=== PATIENT | male | born 1950 ===

== ENCOUNTER 2019-02-25 18:15 | Inpatient (IN) | payer OTHER, MEDICARE ==
[~2019-02-25] VITALS: Ht 175.3 cm; Wt 74.8 kg
[2019-02-25] MEDS ORDERED: DIPHTH/TETANUS/ACEL. PERTUSSIS IM ONLY ONE (18:20)
[2019-02-25] MEDS ORDERED: EMS NS 0.9%(*) 1000 ML BAG 1,000 ML IV ONE (18:20)
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
[2019-02-25 18:40] LABS: PLATELET COUNT, AUTOMATED 128 K/uL (150-450)
[2019-02-25] MEDS ORDERED: NITR0.4T3 SL (18:48)
[2019-02-25] MEDS ORDERED: LISI-374 PO (18:48)
[2019-02-25] MEDS ORDERED: SIMV-54 PO (18:48)
[2019-02-25] MEDS ORDERED: GLIM4TAB50 PO (18:48)
[2019-02-25] MEDS ORDERED: CLOP75TA PO (18:48)
[2019-02-25] MEDS ORDERED: ASPI-1471 PO (18:48)
[2019-02-25] MEDS ORDERED: METO50TA19 PO (18:48)
[2019-02-25 18:52] LABS: INR 1.13
[2019-02-25] MEDS ORDERED: ACETAMINOPHEN 500 MG TAB PO ONE (19:25)
[2019-02-25] MEDS ORDERED: NS(*) 0.9% 1000 ML BAG 1,000 ML IV ONE (19:25)
[2019-02-25] MEDS ORDERED: VANCOMYCIN(*) 1 GM VIAL 1.75 GM in NS(*) 0.9% 250 ML BAG 250 ML IVPB ONE (19:40)
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
[2019-02-25] MEDS ORDERED: NICOTINE 21 MG/24 HR PATCH TD ONE (20:20)
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
[2019-02-25 21:21] VITALS: BP 123/58
[2019-02-25] MEDS ORDERED: NITROGLYCERIN 0.4 MG SUBL SL SCH (21:35)
[2019-02-25] MEDS ORDERED: FLUSH 10 ML SYR IVP PRN (21:35)
[2019-02-25] MEDS ORDERED: INSULIN HUM LISPRO 100 UN/ML 3 ML VIAL SUBQ PRN (21:35)
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
[2019-02-25] MEDS: NS(*) 0.9% 1000 ML BAG 1,000 ML IV PRN (22:13)
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
[2019-02-26] MEDS: PIPERACILLIN/TAZO*3.375GM VIAL 3.375 GM in NS(*) 0.9% 100 ML MINI-BAG 100 ML IVPB SCH ×4 (00:12→17:18)
[2019-02-26 00:18] VITALS: BP 143/91
[2019-02-26 05:53] LABS: PLATELET COUNT, AUTOMATED 107 K/uL (150-450)
[2019-02-26 07:25] VITALS: BP 127/52
[2019-02-26] MEDS: VANCOMYCIN(*) 1 GM VIAL 1 GM, VANCOMYCIN (*) 0.5 GM VIAL 0.25 GM in NS(*) 0.9% 250 ML B... IVPB SCH ×2 (09:32→21:16)
[2019-02-26] MEDS: METOPROLOL SUCC XL 50 MG TABCR 50 MG TAB.ER.24H PO SCH (09:33)
[2019-02-26] MEDS: ASPIRIN 81 MG ENTERIC COATED PO SCH (09:33)
[2019-02-26] MEDS: CLOPIDOGREL BISULFATE 75MG TAB PO SCH (09:33)
[2019-02-26] MEDS: ENOXAPARIN 40 MG/0.4ML SYR SC SCH (09:35)
[2019-02-26] MEDS ORDERED: DOXYCYCLINE HYCL 100 MG VIAL 100 MG in NS(*) 0.9% 250 ML BAG 250 ML IV SCH (11:30)
[2019-02-26 11:53] VITALS: BP 146/73
[2019-02-26] MEDS: ACETAMINOPHEN 325 MG TAB PO PRN ×2 (12:30→13:43)
--- NOTE | 2019-02-26 13:32 | Medical Nutrition Therapy ---
Nutrition Anthropometrics Height (Inches): 69.00 Height (Calculated Centimeters: 175.024080 Weight (Pounds): 165 Weight (Calculated Kilograms): 74.843 BMI: 24.4 Glenn Nutrition Score: Adequate Glenn Nutrition Risk Score: 16 Dietary Referral Nutrition Risk Factors: Nutrition Risk Comment: Physical Findings Physical Appearance: WNR Skin Appearance Skin Appearance: Edema Edema Location Modifier: Right Edema Location: Leg Type of Edema: Degree of Edema: 1+ Gastrointestinal Symptoms GI Symtoms: Tube Present: Bowel Sounds: Recent Bowel Pattern: Stool Characteristics: Nutritional Diagnosis Nutritional Risk Acuity 2: Sepsis Past Medical History: CAD,HTN Nutritional Acuity: 2-Moderate Nutrition Diagnosis: Increased Nutrient Needs Nutrition Etiology: Physiological Causes Nutrition Problem/Etiology/Sym: Cellulitis, Sepsis Energy Requirement: 2409 Protein Requirement: 90 (1.2g/kg (sepsis)) Fluid Requirement: 2409 (1mL/kcal) Nutrition Intervention: Encourage intake, Between meal supplement Nutrition Monitoring & Eval RD Patient Assessment Time: [address] Assessment Type: RD Assessment Patient Nutrition Acuity: 2-Moderate Follow Up Date: Feb 27, 2019 Nutritional Comment: 02/26/19-Reviewed PMH. Significant for CAD, DM, HTN. Found to be septic possibly from cellulitis per H&P. Pertinent rx include simvastatin, lisinopril, lantus, and humalog. BG WNR. Neutrophils elevated. Recommend additional protein related to sepsis. Once pt is awake will offer beneprotein and will provide diabetic diet education. Will continue to monitor.FANTASMA FINCH Feb 26, 2019 13:32
[2019-02-26] MEDS: DOXYCYCLINE HYCL 100 MG VIAL 100 MG in NS(*) 0.9% 250 ML BAG 250 ML IV SCH (13:37)
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
[2019-02-26 15:35] VITALS: BP 124/61
--- NOTE | 2019-02-26 19:13 | Antimicrobial Stewardship ---
Antimicrobial Time Out Antimicrobial Stewardship MD Service: Hospitalist Indications: CAP, Cellulitis Antimicrobial Used DOXYCYCLINE 100MG IV, ZOSYN 3.375G IV, VANCO IV Start Date: Feb 25, 2019 Culture Results: No (NO GROWTH) Eligible for PO Conversion Eligable for PO Conversion: No Reviewed with Provider Reviewed w/ Provider on Rounds: No Comments Comments Patient admitted for lower leg cellulitis and possible pneumonia. Diabetic and at risk for MDR so broad coverage with MRSA and pseudomonas abx at this time. Will narrow as dictated by cultures. Monitor renal function using zosyn and vanco together. Patient with elevated WBC and Tmax of 101.5 in past 24 hrs. MORGAN SMILEY Feb 26, 2019 19:13
[2019-02-26 19:39] VITALS: BP 135/54
[2019-02-26] MEDS ORDERED: INS GLAR 100 UN/ML (ER ONLY) 100 UNIT/ML SUBQ SCH (21:00)
[2019-02-26] MEDS: SIMVASTATIN 40 MG TAB PO SCH (21:16)
[2019-02-26 23:26] VITALS: BP 147/57
[2019-02-27] MEDS: PIPERACILLIN/TAZO*3.375GM VIAL 3.375 GM in NS(*) 0.9% 100 ML MINI-BAG 100 ML IVPB SCH ×4 (00:03→17:35)
[2019-02-27] MEDS: DOXYCYCLINE HYCL 100 MG VIAL 100 MG in NS(*) 0.9% 250 ML BAG 250 ML IV SCH (01:09)
[2019-02-27 03:12] VITALS: BP 137/59
[2019-02-27 05:36] LABS: PLATELET COUNT, AUTOMATED 103 K/uL (150-450)
[2019-02-27 07:37] VITALS: BP 150/62
[2019-02-27] MEDS ORDERED: VANCOMYCIN(*) 1 GM VIAL 1 GM, VANCOMYCIN (*) 0.5 GM VIAL 0.5 GM in NS(*) 0.9% 250 ML BA... IVPB SCH (09:00)
--- NOTE | 2019-02-27 09:08 | Pharmacy Note ---
Vancomycin Management Note Vanco Dosing Note Patient started on Vanco with a load of 1750mg on 02/25 at 1750hrs. Maintenance dosing of 1250mg Q12H continued on 02/26 at 0900 and 2100. Vanco level drawn today (02/27) at 0800 with a result of 7.4 which is lower than target for cellulitis. Dosing schedule was slightly delayed after load. Dose increased today to 1500mg Q12h based on a calculated CrCl of ~ 85ml/min. New Vanco level scheduled to be drawn before 0900 dose tomorrow (02/28). Blood cultures show no growth to date. Patient Tmax 101.5 on 02/26, afebrile today. WBC is trending down. MORGAN SMILEY Feb 27, 2019 09:08
--- NOTE | 2019-02-27 09:20 | Medical Nutrition Therapy ---
Nutrition Anthropometrics Height (Inches): 69.00 Height (Calculated Centimeters: 175.785446 Weight (Pounds): 165 Weight (Calculated Kilograms): 74.843 BMI: 24.4 Glenn Nutrition Score: Adequate Glenn Nutrition Risk Score: 19 Dietary Referral Nutrition Risk Factors: Nutrition Risk Comment: Physical Findings Physical Appearance: WNR Skin Appearance Skin Appearance: Edema Edema Location Modifier: Right Edema Location: Leg Type of Edema: Degree of Edema: 1+ Gastrointestinal Symptoms GI Symtoms: Diarrhea Tube Present: Bowel Sounds: Recent Bowel Pattern: Stool Characteristics: Nutritional Diagnosis Nutritional Risk Acuity 2: Sepsis Past Medical History: CAD,HTN Nutritional Acuity: 2-Moderate Nutrition Diagnosis: Increased Nutrient Needs Nutrition Etiology: Physiological Causes Nutrition Problem/Etiology/Sym: Cellulitis, Sepsis Energy Requirement: 2409 Protein Requirement: 90 (1.2g/kg (sepsis)) Fluid Requirement: 2409 (1mL/kcal) Nutrition Intervention: Encourage intake, Between meal supplement Nutritional Education Nutrition Education Topic: Diabetic Nutrition Learning Readiness: Interested Teaching Methods: Discussion, Handout Response to Teaching: Return demonstration, Verbalize understanding Teaching Recipient: Patient Nutrition Counseling: RD provided education and a meal planning hand out. Topics discussed included: foods that will raise blood glucose (CHO), and those that will not (fat/protein), meal planning, carb counting, eating meals with CHO, fiber, protein and fat to lessen glycemic response, and limiting sugar sweetened beverages. 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 Pt also reports drinking soda (1-3 cans per day). RD recommended selecting protein, vegetables, and counting carbs while eating out, and limiting soda to 1 or less per day and replacing with unsweetened ice tea (or use an alternative sweetener in ice tea) or water. -AKG Nutrition Monitoring & Eval RD Patient Assessment Time: [address] Assessment Type: RD Assessment Patient Nutrition Acuity: 2-Moderate Follow Up Date: Feb 27, 2019 Nutritional Comment: 02/26/19-Reviewed PMH. Significant for CAD, DM, HTN. Found to be septic possibly from cellulitis per H&P. Pertinent rx include simvastatin, lisinopril, lantus, and humalog. BG WNR. Neutrophils elevated. Recommend additional protein related to sepsis. Once pt is awake will offer beneprotein and will provide diabetic diet education. Will continue to monitor.STEPHEN 02/27 Pt continues on ADA diet. Refused most recent meal. Random glucose of 114. Education on the diabetic diet was completed. Monitor blood glucose. -ZAY MCCLOUD Feb 27, 2019 09:20
[2019-02-27] MEDS: CLOPIDOGREL BISULFATE 75MG TAB PO SCH (09:21)
[2019-02-27] MEDS: METOPROLOL SUCC XL 50 MG TABCR 50 MG TAB.ER.24H PO SCH (09:22)
[2019-02-27] MEDS: ASPIRIN 81 MG ENTERIC COATED PO SCH (09:22)
[2019-02-27] MEDS: ENOXAPARIN 40 MG/0.4ML SYR SC SCH (09:24)
--- NOTE | 2019-02-27 09:41 | Hospitalist Progress Note ---
Subjective Progress Notes Subjective This patient was admitted for cellulitis. He had no acute changes overnight. Patient Complains of: Cardiovascular: No: Chest Pain Respiratory: No: Shortness of Breath Physical Exam Vital Signs Date Time Temp Pulse Resp B/P (MAP) Pulse Ox O2 Delivery O2 Flow Rate FiO2 02/27/19 07:37 98.2 67 22 150/62 (91) 92 Nasal Cannula 1.0 Intake and Output 02/27/19 07:02 Intake Total 1063 ml Output Total 275 ml Balance 788 ml Intake Oral 540 ml IV Total 523 ml Output Urine Total 275 ml # Voids 4 # Bowel Movements 3 Cardiovascular: Regular Rate and Rhythm Respiratory: Clear to Auscultation Result Diagram: 02/27/1951402/27/19514 Assessment and Plan Problems: (1) Sepsis Status: Acute Assessment & Plan: Secondary to LLE cellulitis, lactate was initially 4 and normalized. (2) Cellulitis of right lower leg Status: Acute Assessment & Plan: He did present with erythema in the right lower leg and groin. He is on treatment with Zosyn, doxycycline, and vancomycin. His erythema is improving. (3) CAD (coronary artery disease) Assessment & Plan: He is on chronic treatment with metoprolol, Plavix, ASA. His lisinopril is on hold. (4) Encephalopathy Assessment & Plan: Secondary to sepsis. A CT scan of the head negative for acute pathology. (5) Type II diabetes mellitus Status: Acute Assessment & Plan: He is on chronic treatment with glimepiride, which is currently on hold. He is currently on sliding scale level #1. 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
[2019-02-27 11:48] VITALS: BP 164/66
[2019-02-27] MEDS: ACETAMINOPHEN 325 MG TAB PO PRN ×2 (12:01→18:21)
[2019-02-27] MEDS: NS(*) 0.9% 1000 ML BAG 1,000 ML IV PRN ×2 (14:01→23:05)
[2019-02-27 15:02] VITALS: BP 170/76
[2019-02-27] MEDS: LISINOPRIL 20 MG TAB PO SCH (15:59)
[2019-02-27 17:29] VITALS: BP 158/84
[2019-02-27] MEDS: SIMVASTATIN 40 MG TAB PO SCH (20:27)
[2019-02-27 23:05] VITALS: BP 186/88
[2019-02-28] MEDS: PIPERACILLIN/TAZO*3.375GM VIAL 3.375 GM in NS(*) 0.9% 100 ML MINI-BAG 100 ML IVPB SCH ×5 (00:28→23:39)
[2019-02-28] MEDS: ACETAMINOPHEN 325 MG TAB PO PRN ×3 (00:30→12:55)
[2019-02-28 05:52] LABS: PLATELET COUNT, AUTOMATED 114 K/uL (150-450)
[2019-02-28 07:03] VITALS: BP 176/75
[2019-02-28] MEDS: ASPIRIN 81 MG ENTERIC COATED PO SCH (09:43)
[2019-02-28] MEDS: CLOPIDOGREL BISULFATE 75MG TAB PO SCH (09:43)
[2019-02-28] MEDS: METOPROLOL SUCC XL 50 MG TABCR 50 MG TAB.ER.24H PO SCH (09:43)
[2019-02-28] MEDS: LISINOPRIL 20 MG TAB PO SCH (09:44)
[2019-02-28] MEDS: ENOXAPARIN 40 MG/0.4ML SYR SC SCH (09:44)
[2019-02-28] MEDS ORDERED: POTASSIUM CHL 10 MEQ TABCR PO ONE (10:00)
[2019-02-28] MEDS ORDERED: LOPERAMIDE HCL 2 MG CAP PO PRN (10:00)
[2019-02-28] MEDS ORDERED: FUROSEMIDE 20 MG/2 ML VIAL IVP ONE (10:00)
--- NOTE | 2019-02-28 10:02 | Medical Nutrition Therapy ---
Nutrition Anthropometrics Height (Inches): 69.00 Height (Calculated Centimeters: 175.180184 Weight (Pounds): 165 Weight (Calculated Kilograms): 74.843 BMI: 24.4 Glenn Nutrition Score: Probably Inadequate Glenn Nutrition Risk Score: 17 Dietary Referral Nutrition Risk Factors: Nutrition Risk Comment: Physical Findings Physical Appearance: WNR Skin Appearance Skin Appearance: Edema Edema Location Modifier: Left Edema Location: Leg Type of Edema: Degree of Edema: 1+ Gastrointestinal Symptoms GI Symtoms: Appetite Changes, Diarrhea, Change in Bowel Pattern Tube Present: Bowel Sounds: Recent Bowel Pattern: Stool Characteristics: Nutritional Diagnosis Nutritional Risk Acuity 2: Sepsis Past Medical History: CAD,HTN Nutritional Acuity: 2-Moderate Nutrition Diagnosis: Increased Nutrient Needs Nutrition Etiology: Physiological Causes Nutrition Problem/Etiology/Sym: Cellulitis, Sepsis Energy Requirement: 2409 Protein Requirement: 90 (1.2g/kg (sepsis)) Fluid Requirement: 2409 (1mL/kcal) Nutrition Intervention: Encourage intake, Between meal supplement Nutrition Monitoring & Eval RD Patient Assessment Time: [address] Assessment Type: RD Assessment Patient Nutrition Acuity: 2-Moderate Follow Up Date: Mar 01, 2019 Nutritional Comment: 02/26/19-Reviewed PMH. Significant for CAD, DM, HTN. Found to be septic possibly from cellulitis per H&P. Pertinent rx include simvastatin, lisinopril, lantus, and humalog. BG WNR. Neutrophils elevated. Recommend additional protein related to sepsis. Once pt is awake will offer beneprotein and will provide diabetic diet education. Will continue to monitor.STEPHEN 02/27 Pt continues on ADA diet. Refused most recent meal. Random glucose of 114. Education on the diabetic diet was completed. Monitor blood glucose. -DEXTER 02/28: Corrected follow update.-ZAY MCCLOUD Feb 28, 2019 10:02
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
[2019-02-28] MEDS: LACTOBACILLUS ACIDOPHILUS TAB PO SCH ×2 (11:57→18:05)
[2019-02-28 12:04] VITALS: BP_SYST 188; BP_SYST 190; BP_DIAS 68; BP_DIAS 93
[2019-02-28] MEDS ORDERED: NITROGLYCERIN 0.4 MG SUBL SL PRN (13:25)
[2019-02-28 16:22] VITALS: BP 180/84
--- NOTE | 2019-02-28 17:05 | RADIOLOGY IMAGING REPORT ---
FACILITY: [facility] - [place] PATIENT NAME: Damion Drew : 1950 MR: [id number] V: [id number] EXAM DATE: ORDERING PHYSICIAN: FREDO SAM TECHNOLOGIST: Location: [facility] Patient: Damion Drew : 1950 Visit/Account:[id number] Date of Sevice: 02/28/2019 Right lower extremity venous Doppler duplex ultrasound scan. HISTORY: Right calf infection. COMPARISON: None. A color flow Doppler duplex ultrasound examination with spectral analysis was performed on the lower extremity. The common femoral vein, superficial femoral vein, and popliteal vein are normal. These ve ssels compress and augment normally. The upper portions of the trifurcation veins are unremarkable. P ortions of the deep veins of the calf are obscured. No intraluminal filling defects are identified to suggest acute thrombus in the deep venous system. Several oval-shaped fat containing lymph nodes measuring up to 3.8 cm in diameter are present in the right groin. Edema is present in the soft tissues of the right calf. A venous reflux study was not performed at this time. Note that Doppler ultrasound is somewhat insensitive below the knee. IMPRESSION: Right groin adenopathy, probably reactive. Right calf edema. Otherwise negative for acute deep vein thrombosis. Report Dictated By: Carlton Campos MD at 02/28/2019 4:56 PM Report E-Signed By: Carlton Campos MD at 02/28/2019 4:58 PM WSN:[id number]
[2019-02-28 20:15] VITALS: BP 197/78
[2019-02-28] MEDS: SIMVASTATIN 40 MG TAB PO SCH (20:31)
[2019-02-28 23:40] VITALS: BP 176/64
[2019-03-01 04:25] VITALS: BP 186/62
[2019-03-01 05:36] LABS: PLATELET COUNT, AUTOMATED 121 K/uL (150-450)
[2019-03-01] MEDS: PIPERACILLIN/TAZO*3.375GM VIAL 3.375 GM in NS(*) 0.9% 100 ML MINI-BAG 100 ML IVPB SCH ×4 (05:37→23:53)
[2019-03-01 07:14] VITALS: BP 172/74
[2019-03-01] MEDS: LACTOBACILLUS ACIDOPHILUS TAB PO SCH ×2 (08:03→16:52)
[2019-03-01] MEDS: ACETAMINOPHEN 325 MG TAB PO PRN ×2 (08:03→15:14)
[2019-03-01] MEDS: POTASSIUM CHL 20 MEQ TABCR PO SCH ×2 (09:42→16:52)
[2019-03-01] MEDS: CLOPIDOGREL BISULFATE 75MG TAB PO SCH (09:42)
[2019-03-01] MEDS: LISINOPRIL 20 MG TAB PO SCH (09:42)
[2019-03-01] MEDS: ASPIRIN 81 MG ENTERIC COATED PO SCH (09:42)
[2019-03-01] MEDS: METOPROLOL SUCC XL 50 MG TABCR 50 MG TAB.ER.24H PO SCH (09:43)
[2019-03-01] MEDS: NICOTINE 21 MG/24 HR PATCH TD SCH (09:43)
[2019-03-01] MEDS: ENOXAPARIN 40 MG/0.4ML SYR SC SCH (09:54)
[2019-03-01] MEDS ORDERED: METO100T20 PO (10:03)
--- NOTE | 2019-03-01 10:28 | NUR ---
Physical Therapy Impression PT eval complete. Pt completed bed mobility with Tony, transfers with SBA and ambulation x250' with RW and SBA. Pt's main complaint is R) LE pain, but reports that this improved with use of RW. SPO2 WNL on room air with ambulation. Pt will need stair training prior to d/c. Physical Therapy Goals 1: pt to complete transfers with Tony 2: pt to ambulate 150' with Tony 3: Pt to asc/desc 3 stairs with railing and SBA Patient's Goals
[2019-03-01] MEDS: HYDROCHLOROTHIAZIDE 25 MG TAB PO SCH (10:36)
--- NOTE | 2019-03-01 10:52 | Medical Nutrition Therapy ---
Nutrition Anthropometrics Height (Inches): 69.00 Height (Calculated Centimeters: 175.033391 Weight (Pounds): 165 Weight (Calculated Kilograms): 74.843 BMI: 24.4 Glenn Nutrition Score: Probably Inadequate Glenn Nutrition Risk Score: 17 Dietary Referral Nutrition Risk Factors: Nutrition Risk Comment: Physical Findings Physical Appearance: WNR Skin Appearance Skin Appearance: Edema Edema Location Modifier: Right Edema Location: Leg Type of Edema: Degree of Edema: 1+ Gastrointestinal Symptoms GI Symtoms: Appetite Changes, Diarrhea Tube Present: Bowel Sounds: Recent Bowel Pattern: Stool Characteristics: Nutrition/Food History Decreasing Breakfast: Abdul or Sausage, Pancakes or Waffle Dinner: Fried Chicken, Lo Mein, Burrito with Rice/Beans Snacks: Drinking Coke Nutritional Diagnosis Nutritional Risk Acuity 2: Sepsis Past Medical History: CAD,HTN Nutritional Acuity: 2-Moderate Nutrition Diagnosis: Increased Nutrient Needs Nutrition Etiology: Physiological Causes Nutrition Problem/Etiology/Sym: Cellulitis, Sepsis Energy Requirement: 2409 Protein Requirement: 90 (1.2g/kg (sepsis)) Fluid Requirement: 2409 (1mL/kcal) Nutrition Intervention: Encourage intake, Between meal supplement Nutrition Monitoring & Eval Nutrition Goals: Eat 75-100% Meal Nutrition Follow-Up: Poor Intake Nutrition Monitoring: BG, Appetite RD Patient Assessment Time: [address] Assessment Type: RD Assessment Patient Nutrition Acuity: 2-Moderate Follow Up Date: Mar 04, 2019 Nutritional Comment: 02/26/19-Reviewed PMH. Significant for CAD, DM, HTN. Found to be septic possibly from cellulitis per H&P. Pertinent rx include simvastatin, lisinopril, lantus, and humalog. BG WNR. Neutrophils elevated. Recommend additional protein related to sepsis. Once pt is awake will offer beneprotein and will provide diabetic diet education. Will continue to monitor.STEPHEN 02/27 Pt continues on ADA diet. Refused most recent meal. Random glucose of 114. Education on the diabetic diet was completed. Monitor blood glucose. -AKG 02/28: Corrected follow update.-AKG 03/01: Kitchen called pt had requested cinnamon roll this am. BG at 7:52 was 130. Pt states appetite has not been very good here. Encouraged pt to try soup, easy to consume foods. Will continue to monitor appetite and weight.FANTASMA FINCH Mar 01, 2019 10:52
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
[2019-03-01 12:24] VITALS: BP 189/80
[2019-03-01] MEDS ORDERED: NS(*) 0.9% 500 ML BAG 500 ML ONE (12:27)
[2019-03-01 15:15] VITALS: BP 184/82
[2019-03-01] MEDS ORDERED: traMADol 50 MG TAB PO PRN (17:30)
[2019-03-01 20:00] VITALS: BP 187/81
[2019-03-01] MEDS: SIMVASTATIN 40 MG TAB PO SCH (21:57)
[2019-03-01 22:58] VITALS: BP 189/81
[2019-03-02] MEDS: PIPERACILLIN/TAZO*3.375GM VIAL 3.375 GM in NS(*) 0.9% 100 ML MINI-BAG 100 ML IVPB SCH (05:47)
[2019-03-02 06:00] VITALS: BP 155/75
[2019-03-02 07:17] LABS: PLATELET COUNT, AUTOMATED 136 K/uL (150-450)
[2019-03-02] MEDS: CLOPIDOGREL BISULFATE 75MG TAB PO SCH (08:20)
[2019-03-02] MEDS: METOPROLOL SUCC XL 50 MG TABCR 50 MG TAB.ER.24H PO SCH (08:20)
[2019-03-02] MEDS: POTASSIUM CHL 20 MEQ TABCR PO SCH ×2 (08:20→16:38)
[2019-03-02] MEDS: LACTOBACILLUS ACIDOPHILUS TAB PO SCH ×2 (08:20→16:38)
[2019-03-02] MEDS: ASPIRIN 81 MG ENTERIC COATED PO SCH (08:20)
[2019-03-02] MEDS: LISINOPRIL 20 MG TAB PO SCH (08:20)
[2019-03-02] MEDS: ENOXAPARIN 40 MG/0.4ML SYR SC SCH (08:20)
[2019-03-02] MEDS: HYDROCHLOROTHIAZIDE 25 MG TAB PO SCH (08:20)
[2019-03-02] MEDS: NICOTINE 21 MG/24 HR PATCH TD SCH (08:21)
--- NOTE | 2019-03-02 09:04 | NUR ---
Physical Therapy Impression PT has met all PT goals and is safe to d/c from a mobility stand point when medically appropriate. Pt is Tony for bed mobility and transfers. Ambulation x500' with and without RW, pt with antalgic gait d/t R) LE pain, but with good tolerance overall. PT cues for sequencing for stair negotiation, with improved tolerance with proper sequence performed. Pt reports that he has a walker in his storage locker, but plans to d/c to a motel. No further PT needs recognized at this time. Physical Therapy Goals 1: pt to complete transfers with Tony 2: pt to ambulate 150' with Tony 3: Pt to asc/desc 3 stairs with railing and SBA Patient's Goals
[2019-03-02 10:45] VITALS: BP 189/81
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
[2019-03-02 14:23] VITALS: BP 191/77
[2019-03-02] MEDS: AMOX/CLAV 875 MG TAB PO SCH (16:38)
[2019-03-02 19:23] VITALS: BP 188/75
[2019-03-02] MEDS: SIMVASTATIN 40 MG TAB PO SCH (21:10)
[2019-03-02] MEDS ORDERED: amLODIPine BESYL(*) 2.5 MG TAB PO PRN (21:20)
[2019-03-02] MEDS ORDERED: POTASSIUM CHL 10 MEQ TABCR PO ONE (21:20)
[2019-03-02 22:25] VITALS: BP 180/75
[2019-03-03 02:00] VITALS: BP 175/77
[2019-03-03 06:04] LABS: PLATELET COUNT, AUTOMATED 166 K/uL (150-450)
[2019-03-03 08:03] VITALS: BP 167/59
[2019-03-03] MEDS: POTASSIUM CHL 20 MEQ TABCR PO SCH (08:55)
[2019-03-03] MEDS: LACTOBACILLUS ACIDOPHILUS TAB PO SCH (08:56)
[2019-03-03] MEDS: AMOX/CLAV 875 MG TAB PO SCH (08:56)
[2019-03-03] MEDS ORDERED: AMOX-559 PO (08:58)
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
[2019-03-03] MEDS: ASPIRIN 81 MG ENTERIC COATED PO SCH (09:45)
[2019-03-03] MEDS: LISINOPRIL 20 MG TAB PO SCH (09:45)
[2019-03-03] MEDS: CLOPIDOGREL BISULFATE 75MG TAB PO SCH (09:46)
[2019-03-03] MEDS: METOPROLOL SUCC XL 50 MG TABCR 50 MG TAB.ER.24H PO SCH (09:46)
[2019-03-03] MEDS: NICOTINE 21 MG/24 HR PATCH TD SCH (09:46)
[2019-03-03] MEDS: ENOXAPARIN 40 MG/0.4ML SYR SC SCH (09:46)
== END 2019-03-03 12:50 | disposition home or self-care (01) | DRG 871 ==
LOC: EDBD 18:38 → ER 18:38 → MED 20:47
PROVIDERS: ADMIT Internal Medicine; ATTEND Internal Medicine
DX: A41.9 Sepsis, unspecified organism (principal); G93.41 Metabolic encephalopathy; L03.115 Cellulitis of right lower limb; E11.65 Type 2 diabetes mellitus with hyperglycemia; E11.628 Type 2 diabetes mellitus with other skin complications; I25.10 Atherosclerotic heart disease of native coronary artery without angina pectoris; F17.210 Nicotine dependence, cigarettes, uncomplicated; I10 Essential (primary) hypertension; Z23 Encounter for immunization; V58.5XXA Driver of pick-up truck or van injured in noncollision transport accident in traffic accident, initial encounter; Y93.89 Activity, other specified; Z79.84 Long term (current) use of oral hypoglycemic drugs; Y92.410 Unspecified street and highway as the place of occurrence of the external cause
CPT/HCPCS: 36415; 36416; 70450; 71045; 72125; 72170; 80202; 80305; 80320; 81001; 82040; 82140; 82247; 82310; 82374; 82375; 82435; 82565; 82947; 82948; 83605; 83630; 83880; 84075; 84132; 84155; 84295; 84443; 84450; 84460; 84484; 84520; 85025; 85610; 85730; 86140; 87040; 87045; 87493; 90471; 90715; 93005; 96361; 96365; 97161; 99285; J1650; J1940; J2543; J3370; J3490; J7030; J7040; J7050; L0172